=== PATIENT | male | born 1945 | race Caucasian/White ===

== ENCOUNTER 2018-09-01 16:10 | Outpatient (CLI) | payer SELFPAY | END 2018-09-01 16:11 | disposition EMS.NT | LOC: EMS 16:10 | PROVIDERS: ATTEND Surgery | DX: R07.89 Other chest pain (principal) ==

== ENCOUNTER 2020-08-24 22:33 | Emergency (ER) | payer MEDICARE, OTHER ==
--- OUTSIDE RECORDS SUMMARY | 2020-08-24 23:05 | EXTERNAL MEDICAL SUMMARY RPT | Continuity of Care Document ---
:1945 Demographics Phone Unavailable Preferred Language Unknown Marital Status Unknown Worship Affiliation Unknown Race Unknown Ethnic Group Unknown Author Organization [facility] Address [address] [id number] Phone Allergies Encounters Medications Problems Results
--- NOTE | 2020-08-24 23:13 | ED Physician Documentation ---
History of Present Illness - Stated complaint Stated Complaint: SHAKING/VOMITING - Chief complaint Chief Complaint: General - History obtained from History obtained from: Patient - Additonal information Additional information: 74-year-old man with past medical history of prostate cancer status post lupron antineoplastic injection on Monday, recently started on bicalutamide oral pills over the past four days, p/w nbnb n/v X 5 today and fever/chills today with tmax 101.2 oral this evening. 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 denies abd pain, back pain, urinary sx, chest pain, diarrhea, sick contacts. he is fully vaccinated against covid 19. patient endorses cough over the past month, nonproductive, a/w mild chest congestion, nonworsening today. denies MULLER, soa, leg swelling or other symptoms. Of note, he had a dog bite to his L calf 6 weeks ago and took a full course of cipro for it and is now on bactrim day 09/26. Wound site is finally healing but still mildly erythematous. Note that patient states he has an allergy to penicillin but has not had in a long time and the reaction is nausea and a rash. He does state that he is able to take amoxicillin without issue. Review of Systems Ten Systems: 10 systems reviewed and negative Constitutional: reports: Fever, Chills Ears: denies: Ear pain Nose: denies: Rhinorrhea / runny nose, Congestion Cardiac: denies: Chest pain / pressure, Palpitations Respiratory: reports: Cough. denies: Dyspnea, Hemoptysis, Wheezing GI: reports: Nausea, Vomiting. denies: Abdominal Pain, Diarrhea : denies: Dysuria, Frequency Musculoskeletal: denies: Back pain PD PAST MEDICAL HISTORY - Present Medications Home Medications: Ambulatory Orders Medication Instructions Recorded Confirmed Atorvastatin [Lipitor] 20 mg PO DAILY 08/24/20 08/24/20 Bicalutamide [Casodex] 50 mg PO DAILY 08/24/20 08/24/20 Sulfamethox/Trimeth 800/160 1 tablet PO BID 08/24/20 08/24/20 [Bactrim Ds] Amox/Clav 875/125 [Augmentin 1 tablet PO Q12H 14 Days #28 tablet 08/25/20 875/125 Tab] Ondansetron Odt [Zofran Odt] 4 mg TL Q6H PRN #10 tablet 08/25/20 - Allergies Allergies/Adverse Reactions: Allergies Allergy/AdvReac Type Severity Reaction Status Date / Time mercury (elemental) Allergy Rash Verified 08/24/20 22:38 Penicillins Allergy Rash Verified 08/24/20 22:38 procaine [From Novocain] Allergy Nausea Verified 08/24/20 22:38 PD ED PE NORMAL - Vitals Vital signs reviewed: Yes - General General: Alert and oriented X 3, No acute distress, Well developed/nourished - HEENT HEENT: Atraumatic, PERRL, EOMI, Moist mucous membranes, Pharynx benign - Neck Neck: Supple, no meningeal sign - Cardiac Cardiac: RRR - Respiratory Respiratory: No respiratory distress, Clear bilaterally - Abdomen Abdomen: Non tender, Non distended - Back Back: No CVA TTP - Derm Derm: Normal color - Extremities Extremities: No deformity - Neuro Neuro: Alert and oriented X 3 - Psych Psych: Normal mood, Normal affect Results - Vitals Vitals: Vital Signs - 24 hr 08/24/20 08/25/20 08/25/20 22:38 00:19 01:00 Temperature 36.5 C 37.4 C Heart Rate 62 56 L 53 L Respiratory 16 17 21 Rate Blood Pressure 127/63 105/62 108/73 O2 Saturation 98 94 93 Oxygen O2 Source Room air - Labs Labs: Laboratory Tests 08/24/20 08/24/20 08/24/20 23:15 23:17 23:17 WBC 5.7 RBC 5.26 Hgb 16.5 Hct 48.3 MCV 91.8 MCH 31.4 H MCHC 34.2 RDW 13.5 Plt Count 141 MPV 9.8 Neut # (Auto) 4.7 Lymph # (Auto) 0.4 L [place] # (Auto) 0.5 Eos # (Auto) 0.0 Baso # (Auto) 0.0 Absolute Nucleated RBC 0.00 Nucleated RBC % 0.0 Sodium 132 L Potassium 4.2 Chloride 97 L Carbon Dioxide 23 Anion Gap 12.0 BUN 16 Creatinine 1.3 H Estimated GFR (MDRD) 54 L Glucose 129 H Lactic Acid Calcium 9.5 Total Bilirubin 1.1 H AST 48 H ALT 52 Alkaline Phosphatase 85 Total Protein 7.2 Albumin 4.0 Globulin 3.2 Albumin/Globulin Ratio 1.3 Lipase 24 Urine Color YELLOW Urine Clarity CLEAR Urine pH 5.5 Ur Specific [place] 1.025 Urine Protein TRACE Urine Glucose (UA) NEGATIVE Urine Ketones TRACE Urine Occult Blood MODERATE H Urine Nitrite NEGATIVE Urine Bilirubin NEGATIVE Urine Urobilinogen 1 (NORMAL) Ur Leukocyte Esterase NEGATIVE Urine RBC 6-10 H Urine WBC 0-3 Ur Squamous Epith Cells RARE Squamous Urine Bacteria Rare Urine Mucus Marked Strands Urine Culture Comments NOT INDICATED Nasal Adenovirus (PCR) Nasal B. parapertussis DNA (PCR) Nasal Coronavir 229E PCR Nasal Coronavir HKU1 PCR Nasal Coronavir NL63 PCR Nasal Coronavir OC43 PCR Nasal Enterovir/Rhinovir PCR Nasal Influenza B PCR Nasal Influenza A PCR Nasal Parainfluen 1 PCR Nasal Parainfluen 2 PCR Nasal Parainfluen 3 PCR Nasal Parainfluen 4 PCR Nasal RSV (PCR) Nasal B.pertussis DNA PCR Nasal C.pneumoniae (PCR) Andrews Human Metapneumo PCR Nasal M.pneumoniae (PCR) Nasal SARS-CoV-2 (PCR) 08/24/20 08/25/20 23:17 00:35 WBC RBC Hgb Hct MCV MCH MCHC RDW Plt Count MPV Neut # (Auto) Lymph # (Auto) [place] # (Auto) Eos # (Auto) Baso # (Auto) Absolute Nucleated RBC Nucleated RBC % Sodium Potassium Chloride Carbon Dioxide Anion Gap BUN Creatinine Estimated GFR (MDRD) Glucose Lactic Acid < 0.3 L Calcium Total Bilirubin AST ALT Alkaline Phosphatase Total Protein Albumin Globulin Albumin/Globulin Ratio Lipase Urine Color Urine Clarity Urine pH Ur Specific [place] Urine Protein Urine Glucose (UA) Urine Ketones Urine Occult Blood Urine Nitrite Urine Bilirubin Urine Urobilinogen Ur Leukocyte Esterase Urine RBC Urine WBC Ur Squamous Epith Cells Urine Bacteria Urine Mucus Urine Culture Comments Nasal Adenovirus (PCR) NOT DETECTED Nasal B. parapertussis DNA (PCR) NOT DETECTED Nasal Coronavir 229E PCR NOT DETECTED Nasal Coronavir HKU1 PCR NOT DETECTED Nasal Coronavir NL63 PCR NOT DETECTED Nasal Coronavir OC43 PCR NOT DETECTED Nasal Enterovir/Rhinovir PCR NOT DETECTED Nasal Influenza B PCR NOT DETECTED Nasal Influenza A PCR NOT DETECTED Nasal Parainfluen 1 PCR NOT DETECTED Nasal Parainfluen 2 PCR NOT DETECTED Nasal Parainfluen 3 PCR NOT DETECTED Nasal Parainfluen 4 PCR NOT DETECTED Nasal RSV (PCR) NOT DETECTED Nasal B.pertussis DNA PCR NOT DETECTED Nasal C.pneumoniae (PCR) NOT DETECTED Andrews Human Metapneumo PCR NOT DETECTED Nasal M.pneumoniae (PCR) NOT DETECTED Nasal SARS-CoV-2 (PCR) NOT DETECTED PD MEDICAL DECISION MAKING - ED course ED course: 74-year-old man with prostate cancer on oral chemotherapy, recently started 4 days ago, presents with fever and nausea and vomiting that may be attributable to this versus infection. He has had 2 courses of antibiotics for dog bite and his left calf has a vincenzo that is mildly erythematous without fluctuance, warmth, or swelling. I am switching him to Augmentin because there is no contraindication. He states that he has had amoxicillin in the past without issue. Strict return precautions given. Patient will follow up with his oncologist tomorrow. d/w patient in regards to R medial lung base atelectasis vs pneumonia on chest xray. since he is not experiencing worsening soa or productive cough I suspect this is not the source for his fever, however the augmentin should cover community acquired pneumonia. return precautions reinforced and the report was provided to the patient. Departure - Departure Disposition: 01 Home, Self Care Clinical Impression: Dog bite, Fever and chills, Nausea and vomiting Condition: Good Instructions: Nausea Vomit Control Prescriptions: Amox/Clav 875/125 [Augmentin 875/125 Tab] 1 tablet PO Q12H 14 Days #28 tablet Ondansetron Odt [Zofran Odt] 4 mg TL Q6H PRN #10 tablet PRN Reason: Nausea / Vomiting Comments: You were seen in the emergency department for vomiting and fever. He never had a fever here in the emergency department, but blood cultures were drawn and should grow results in a couple days. It is possible that your fever and vomiting is a side effect of your chemotherapy medication. It is also possible that you have an infection, but your labwork and vital signs are not indicating a severe infection at this time. Your chest x-ray did not show signs of pneumonia, and a covid swab was sent. I will call you if you have any abnormal results. Please return to the emergency department if you have any new or worsening symptoms or other concerns. Follow-up with your oncologist.
[2020-08-24 23:24] LABS: BASOPHILS % (AUTO) 0.4 %; EOSINOPHILS % (AUTO) 0.5 %; HCT - HEMATOCRIT 48.3 % (42.0-52.0); HGB - HEMOGLOBIN 16.5 g/dL (14.0-18.0); LYMPHOCYTES # (AUTO) 0.4 10^3/uL (1.5-3.5); LYMPHOCYTES % (AUTO) 6.2 %; MEAN CORPUSCULAR HEMOGLOBIN 31.4 pg (27.0-31.0); MEAN CORPUSCULAR HGB CONC 34.2 g/dL (32.0-36.0); MEAN CORPUSCULAR VOLUME 91.8 fL (80.0-94.0); MEAN PLATELET VOLUME 9.8 fL (7.4-11.4); MONOCYTES # (AUTO) 0.5 10^3/uL (0.0-1.0); NEUTROPHILS # (AUTO) 4.7 10^3/uL (1.5-6.6); NEUTROPHILS % (AUTO) 83.2 %; PLT - PLATELET COUNT 141 10^3/uL (130-450); RED BLOOD COUNT 5.26 10^6/uL (4.70-6.10); RED CELL DISTRIBUTION WIDTH 13.5 % (12.0-15.0); WHITE BLOOD COUNT 5.7 x10^3/uL (4.8-10.8)
[2020-08-24] MEDS ORDERED: ONDANSETRON 4 MG/2 ML VIAL IVP STA (23:33)
[2020-08-24] MEDS ORDERED: SODIUM CHLORIDE 0.9% 1,000 ML IV STA (23:33)
[2020-08-24 23:37] LABS: ALBUMIN/GLOBULIN RATIO 1.3 (1.0-2.2); BILIRUBIN,TOTAL 1.1 mg/dL (0.2-1.0); CALCIUM 9.5 mg/dL (8.5-10.3); CREATININE 1.3 mg/dL (0.6-1.2); POTASSIUM 4.2 mmol/L (3.5-5.0); TOTAL PROTEIN 7.2 g/dL (6.7-8.2)
[2020-08-24 23:41] LABS: GLUCOSE, URINE (UA) NEGATIVE (NEGATIVE); KETONES,URINE (UA) TRACE mg/dL (NEGATIVE); LEUKOCYTE ESTERASE, URINE NEGATIVE (NEGATIVE); NITRITE,URINE NEGATIVE (NEGATIVE); OCCULT BLOOD,URINE MODERATE (NEGATIVE); PH,URINE 5.5 PH (5.0-7.5); PROTEIN,URINE TRACE mg/dL (NEGATIVE); UROBILINOGEN,URINE 1 (NORMAL) E.U./dL (NORMAL)
[2020-08-24 23:43] LABS: CLARITY,URINE CLEAR (CLEAR)
[2020-08-24 23:44] LABS: BILIRUBIN,URINE NEGATIVE (NEGATIVE); ICTOTEST,URINE NEGATIVE
[2020-08-24 23:49] LABS: BACTERIA,URINE Rare /HPF (None Seen); MUCUS,URINE Marked Strands; SQUAMOUS EPITHELIAL CELL,UR RARE Squamous (<= Few); WBC,URINE 0-3 /HPF (0-3)
[2020-08-25 01:30] VITALS: BP 108/73
[2020-08-25 01:34] LABS: B. PARAPERTUSSIS- RESP PCR PAN NOT DETECTED; B. PERTUSSIS- RESP PCR PANEL NOT DETECTED; C. PNEUMONIAE- RESP PCR PANEL NOT DETECTED; CORONAVIRUS 229E-RESP PCR NOT DETECTED; CORONAVIRUS HKU1-RESP PCR NOT DETECTED; CORONAVIRUS NL63-RESP PCR NOT DETECTED; CORONAVIRUS OC43-RESP PCR NOT DETECTED; HUMAN METAPNEUMOVIRUS NOT DETECTED; INFLUENZA A- RESP PCR PANEL NOT DETECTED; INFLUENZA B - RESP PCR PANEL NOT DETECTED; M. PNEUMONIAE- RESP PCR PANEL NOT DETECTED; PARAINFLUENZA VIRUS 1 NOT DETECTED; PARAINFLUENZA VIRUS 2 NOT DETECTED; PARAINFLUENZA VIRUS 3 NOT DETECTED; PARAINFLUENZA VIRUS 4 NOT DETECTED; RHINOVIRUS/ENTEROVIRUS NOT DETECTED; RSV- RESP PCR PANEL NOT DETECTED; SARS-CoV-2 -RESP PCR PANEL NOT DETECTED
--- NOTE | 2020-08-25 07:26 | XRAY Report ---
PROCEDURE: Chest 2 View X-Ray INDICATIONS: Cough, congestion, fever, nausea, vomiting TECHNIQUE: 2 view(s) of the chest. COMPARISON: None. FINDINGS: Surgical changes and devices: None. Lungs and pleura: Patchy airspace opacity in the right lung base and infrahilar right lung. The left lung and pleural spaces are clear. Mediastinum: Mediastinal contours are normal. Heart size is normal. Bones and chest wall: No suspicious bony abnormalities. Soft tissues appear unremarkable. IMPRESSION: Patchy airspace opacity in the right lung base and right medial infrahilar region. This may be atelectasis or infectious infiltrate. Reviewed by: Tunde Barlow MD on 08/25/2020 7:25 AM PDT Approved by: Tunde Barlow MD on 08/25/2020 7:25 AM PDT Station ID: [id number]
== END 2020-08-25 04:52 | disposition home or self-care (01) ==
LOC: ED 22:33
DX: R50.9 Fever, unspecified (principal); R11.2 Nausea with vomiting, unspecified; S81.852A Open bite, left lower leg, initial encounter; W54.0XXA Bitten by dog, initial encounter; C61 Malignant neoplasm of prostate; R91.8 Other nonspecific abnormal finding of lung field; Z20.822 Contact with and (suspected) exposure to COVID-19; Z88.0 Allergy status to penicillin
CPT/HCPCS: 0202U; 36415; 80053; 81001; 83605; 83690; 85025; 87040; 87086; 96374; 99284

== ENCOUNTER 2020-09-23 08:00 | Outpatient (CLI) | payer MEDICARE, OTHER ==
--- NOTE | 2020-09-23 16:30 | XRAY Report ---
PROCEDURE: Knee 3 View RT INDICATIONS: SPRAIN OF RIGHT KNEE TECHNIQUE: 3 views of the right knee(s) were acquired. COMPARISON: None. FINDINGS: Bones: No fractures or dislocations. No suspicious bony lesions. Minimal degenerative changes. Soft tissues: No joint effusion. No suspicious soft tissue calcifications. IMPRESSION: 1. No acute abnormality of the right knee. 2. Minimal degenerative changes. Reviewed by: Jesse Wong on 09/23/2020 4:29 PM PDT Approved by: Jesse Wong on 09/23/2020 4:29 PM PDT Station ID: [id number]
== END 2020-09-23 23:59 | disposition home or self-care (01) ==
LOC: DI.S 08:00
PROVIDERS: ATTEND Emergency Medicine
DX: M17.11 Unilateral primary osteoarthritis, right knee (principal)

== ENCOUNTER 2023-08-31 22:23 | Emergency (ER) | payer MEDICARE, OTHER ==
[2023-08-31 22:41] VITALS: O2SAT 99
--- NOTE | 2023-08-31 22:48 | ED Physician Documentation ---
PD HPI HEAD INJURY - Stated complaint Stated Complaint: HEAD INJ - Chief complaint Chief Complaint: Trauma Hd/Nk - History obtained from History obtained from: Patient - Additional information Additional information: 77yM on AC p/w head injury after a metal [place] sculpture struck him in the head just [employer]. denies loc or other injury. PD PAST MEDICAL HISTORY - Past Medical History Past Medical History: Yes Cardiovascular: High cholesterol Respiratory: None Neuro: None Endocrine/Autoimmune: None GI: None : Other HEENT: Chronic hearing loss Psych: None Musculoskeletal: None Derm: Other - Past Surgical History Past Surgical History: Yes - Present Medications Home Medications: Ambulatory Orders Medication Instructions Recorded Confirmed Atorvastatin [Lipitor] 20 mg PO DAILY 08/24/20 08/24/20 Rivaroxaban [Xarelto] 20 mg PO DAILY 08/31/23 - Allergies Allergies/Adverse Reactions: Allergies Allergy/AdvReac Type Severity Reaction Status Date / Time mercury (elemental) Allergy Rash Verified 08/31/23 22:37 Penicillins Allergy Rash Verified 08/31/23 22:37 procaine [From Novocain] Allergy Nausea Verified 08/31/23 22:37 - Social History Does the pt smoke?: No Smoking Status: Never smoker Does the pt drink ETOH?: Yes Does the pt have substance abuse?: No - Immunizations Immunizations are current?: Yes - POLST Patient has POLST: No PD ED PE NORMAL - Vitals Vital signs reviewed: Yes - General General: Alert and oriented X 3, No acute distress, Well developed/nourished - HEENT HEENT: Atraumatic, PERRL, EOMI, Moist mucous membranes, Pharynx benign - Neck Neck: No bony TTP, Other (c collar placed on arrival) - Cardiac Cardiac: RRR - Respiratory Respiratory: No respiratory distress, Clear bilaterally - Abdomen Abdomen: Non tender, Non distended - Derm Derm: Normal color, Warm and dry - Extremities Extremities: No deformity - Neuro Eye Opening: Spontaneous Motor: Obeys Commands Verbal: Oriented GCS Score: 15 Results - Vitals Vitals: Vital Signs - 24 hr 08/31/23 22:30 Temperature 36.5 C Heart Rate 51 L Respiratory 17 Rate Blood Pressure 120/63 O2 Saturation 99 Oxygen O2 Source Room air PD Medical Decision Making - ED course ED course: 77yM presents s/p head injury from metal artwork. well appearing with benign exam. modified trauma called at triage due to anticoagulation. CT head/c spine ordered. GCS 15. c collar placed on arrival. plan to dc home pending negative studies. Departure - Departure Clinical Impression: Head injury Condition: Stable Instructions: ED Head Injury Closed Comments: You were seen in the emergency department for evaluation after head injury. Your ct imaging looked okay. Please follow-up with your primary care provider and return to the emergency department if you have any new or worsening symptoms or other concerns.
--- NOTE | 2023-08-31 23:49 | CT Report ---
PROCEDURE: Cervical Spine WO INDICATIONS: Neck trauma, midline tenderness TECHNIQUE: Noncontrast 3 mm thick sections acquired from the skull base to the T4 level. Sagittal and coronal r eformats were then constructed. For radiation dose reduction, the following was used: automated exp osure control, adjustment of mA and/or kV according to patient size. COMPARISON: None. FINDINGS: Image quality: Diagnostic. Bones: No fractures or dislocations. Visualized superior ribs are intact. Soft tissues: Prevertebral soft tissues are normal in thickness. No paravertebral hematomas. No ap ical pneumothoraces. IMPRESSION: No acute fracture or traumatic subluxation. Reviewed by: Mayuri Muñoz MD, PhD on 08/31/2023 11:48 PM PDT Approved by: Mayuri Muñoz MD, PhD on 08/31/2023 11:48 PM PDT Station ID: [id number]
--- NOTE | 2023-08-31 23:50 | CT Report ---
PROCEDURE: Head WO INDICATIONS: Head trauma, mod-severe TECHNIQUE: Noncontrast 4.5 mm thick angled axial sections acquired from the foramen magnum to the vertex. For r adiation dose reduction, the following was used: automated exposure control, adjustment of mA and/or kV according to patient size. COMPARISON: None. FINDINGS: Image quality: Diagnostic. CSF spaces: Basal cisterns are patent. No extra-axial fluid collections. Ventricles are normal in size and shape. Brain: No midline shift. No intracranial masses or hemorrhage. [place]-white matter interface is norm al. Skull and face: Calvarium and visualized facial bones are intact, without suspicious lesions. Sinuses: Visualized sinuses and mastoids are clear. IMPRESSION: No acute intracranial pathology. Reviewed by: Mayuri Muñoz MD, PhD on 08/31/2023 11:49 PM PDT Approved by: Mayuri Muñoz MD, PhD on 08/31/2023 11:49 PM PDT Station ID: [id number]
[2023-09-01 00:18] VITALS: BP 124/58
== END 2023-09-01 00:08 | disposition home or self-care (01) ==
LOC: ED 22:23
DX: S09.90XA Unspecified injury of head, initial encounter (principal); W20.8XXA Other cause of strike by thrown, projected or falling object, initial encounter; Y93.89 Activity, other specified; Z79.01 Long term (current) use of anticoagulants
CPT/HCPCS: 99283; 99284